=== PATIENT | female | born 1950 | race Caucasian/White ===

== ENCOUNTER 2021-01-04 14:26 | Inpatient (IN) | payer MEDICARE, OTHER ==
[~2021-01-04] VITALS: Ht 154.9 cm; Wt 40.5 kg
[2021-01-04] MEDS ORDERED: MONTELUKAST SOD10 MG PO (17:38)
[2021-01-04] MEDS ORDERED: POTASSIUM CHLOR8 ME1 PO (17:38)
[2021-01-04] MEDS ORDERED: SYMBICORT 16010.2 GM INH (17:38)
[2021-01-04] MEDS ORDERED: PAROXETINE HCL40 MG PO (17:39)
[2021-01-04] MEDS ORDERED: SIMVASTATIN20 MG PO (17:39)
[2021-01-04] MEDS ORDERED: KLONOPIN TAB 00.5 MG PO (17:40)
[2021-01-04] MEDS ORDERED: HYDROCODON-ACE1 EAC4 PO (17:40)
[2021-01-04] MEDS ORDERED: GABAPENTIN100 MG PO (17:40)
[2021-01-04] MEDS ORDERED: LISINOPRIL40 MG PO (17:41)
[2021-01-04] MEDS ORDERED: PROPRANOLOL HCL60 MG PO (17:41)
[2021-01-04] MEDS ORDERED: OMEPRAZOLE20 MG PO (17:42)
[2021-01-04] MEDS ORDERED: DALIRESP 500500 MCG PO (17:42)
[2021-01-04] MEDS ORDERED: BUSPIRONE HCL15 MG PO (17:43)
[2021-01-04] MEDS ORDERED: CYCLOBENZAPRINE10 MG PO (17:44)
[2021-01-04] MEDS ORDERED: FUROSEMIDE20 MG PO (17:44)
[2021-01-04] MEDS ORDERED: OXCARBAZEPINE150 MG PO (17:45)
[2021-01-04] MEDS ORDERED: METOPROLOL SUCC25 MG PO (17:45)
[2021-01-04] MEDS ORDERED: SPIRIVA18 MCG INH (17:46)
[2021-01-04 17:58] LABS: HEMOGLOBIN 13.2 gm/dl (12.3-15.3); RED BLOOD COUNT 4.07 M/UL (4.00-5.10); WHITE BLOOD COUNT 6.8 K/UL (4.5-11.0)
[2021-01-04 19:12] LABS: BUN/CREATININE RATIO 21 (0-10)
--- NOTE | 2021-01-05 09:39 | NUR ---
DAUGHTER MARY NOTIFIED PT WENT DOWN FOR HEART CATH PER DR. JONES AND PT REQUEST
[2021-01-05 09:51] LABS: BUN/CREATININE RATIO 21 (0-10)
[2021-01-05 10:29] LABS: HEMOGLOBIN 12.6 gm/dl (12.3-15.3); RED BLOOD COUNT 3.92 M/UL (4.00-5.10)
[2021-01-05 10:30] LABS: WHITE BLOOD COUNT 10.5 K/UL (4.5-11.0)
[2021-01-06 07:09] LABS: RED BLOOD COUNT 3.69 M/UL (4.00-5.10)
[2021-01-06 07:46] LABS: BUN/CREATININE RATIO 21 (0-10)
[2021-01-07 02:54] LABS: HEMOGLOBIN 11.5 gm/dl (12.3-15.3); RED BLOOD COUNT 3.52 M/UL (4.00-5.10); WHITE BLOOD COUNT 9.1 K/UL (4.5-11.0)
[2021-01-07 03:26] LABS: BUN/CREATININE RATIO 15 (0-10)
[2021-01-07] MEDS ORDERED: ATORVASTATIN CA10 MG PO (16:01)
[2021-01-07] MEDS ORDERED: PROTONIX 40 MG40 M1 PO (16:01)
[2021-01-07] MEDS ORDERED: CLOPIDOGREL75 MG PO (16:01)
[2021-01-07] MEDS ORDERED: ASPIRIN EC81 MG PO (16:01)
[2021-01-07] MEDS ORDERED: MAG-OX 400 TAB400 MG PO (16:01)
[2021-01-07] MEDS ORDERED: AMLODIPINE BESYL5 MG PO (16:01)
== END 2021-01-07 20:00 | disposition home health service (06) | DRG 246 ==
LOC: PROG CARE 14:26
PROVIDERS: Internal Medicine Cardiovascular Disease; ADMIT Internal Medicine
PROC: 027034Z Dilation of Coronary Artery, One Artery with Drug-eluting Intraluminal Device, Percutaneous Approach (ICD-10-PCS; principal; 2021-01-05)
PROC: 4A023N7 Measurement of Cardiac Sampling and Pressure, Left Heart, Percutaneous Approach (ICD-10-PCS; 2021-01-05)
PROC: B2111ZZ Fluoroscopy of Multiple Coronary Arteries using Low Osmolar Contrast (ICD-10-PCS; 2021-01-05)
PROC: B24BZZ4 Ultrasonography of Heart with Aorta, Transesophageal (ICD-10-PCS; 2021-01-05)
DX: I21.4 Non-ST elevation (NSTEMI) myocardial infarction (principal); J96.01 Acute respiratory failure with hypoxia; J96.02 Acute respiratory failure with hypercapnia; Z20.822 Contact with and (suspected) exposure to COVID-19; R64 Cachexia; E46 Unspecified protein-calorie malnutrition; Z68.1 Body mass index [BMI] 19.9 or less, adult; J43.9 Emphysema, unspecified; F17.210 Nicotine dependence, cigarettes, uncomplicated; E78.5 Hyperlipidemia, unspecified; M16.0 Bilateral primary osteoarthritis of hip; G20 Parkinson's disease; F41.9 Anxiety disorder, unspecified; K58.9 Irritable bowel syndrome, unspecified; E05.90 Thyrotoxicosis, unspecified without thyrotoxic crisis or storm; I08.1 Rheumatic disorders of both mitral and tricuspid valves; I10 Essential (primary) hypertension; Z99.81 Dependence on supplemental oxygen; Z82.49 Family history of ischemic heart disease and other diseases of the circulatory system
CPT/HCPCS: ECHO; 36415; 80053; 82550; 82553; 82962; 83735; 84100; 84132; 84484; 85025; 85347; 85610; 85730; 93005; 93306; 94640; 94664; 94760; 99152; 99153; C1725; C1769; C1874; C1887; C1894; C9600; J0360; J1644; J3010; J3246; J7040; Q9965

== ENCOUNTER 2021-11-01 09:28 | Emergency (ER) | payer MEDICARE, OTHER ==
[~2021-11-01 09:28] MED LIST: AMLODIPINE BESYL5 MG PO; ASPIRIN EC81 MG PO; ATORVASTATIN CA10 MG PO; BUSPIRONE HCL15 MG PO; CLOPIDOGREL75 MG PO; CYCLOBENZAPRINE10 MG PO; DALIRESP 500500 MCG PO; FUROSEMIDE20 MG PO; GABAPENTIN100 MG PO; HYDROCODON-ACE1 EAC4 PO; KLONOPIN TAB 00.5 MG PO; LISINOPRIL40 MG PO; MAG-OX 400 TAB400 MG PO; METOPROLOL SUCC25 MG PO; MONTELUKAST SOD10 MG PO; OMEPRAZOLE20 MG PO; OXCARBAZEPINE150 MG PO; PAROXETINE HCL40 MG PO; POTASSIUM CHLOR8 ME1 PO; PROPRANOLOL HCL60 MG PO; PROTONIX 40 MG40 M1 PO; SIMVASTATIN20 MG PO; SPIRIVA18 MCG INH; SYMBICORT 16010.2 GM INH
[2021-11-01 10:10] LABS: HEMOGLOBIN 11.3 gm/dl (12.3-15.3); RED BLOOD COUNT 3.58 M/UL (4.00-5.10); WHITE BLOOD COUNT 9.7 K/UL (4.5-11.0)
[2021-11-01 11:09] LABS: BUN/CREATININE RATIO 14 (0-10)
[2021-11-01] MEDS ORDERED: PREDNISONE20 MG PO (15:19)
[2021-11-01] MEDS ORDERED: IPRAT-ALBUT 0.5-3 ML INH (15:20)
== END 2021-11-01 17:06 | disposition home or self-care (01) ==
LOC: ER1 09:28
PROVIDERS: Family Medicine
DX: J96.11 Chronic respiratory failure with hypoxia (principal); J96.12 Chronic respiratory failure with hypercapnia; F17.200 Nicotine dependence, unspecified, uncomplicated; Z99.81 Dependence on supplemental oxygen; Z20.822 Contact with and (suspected) exposure to COVID-19; J44.9 Chronic obstructive pulmonary disease, unspecified; Z86.59 Personal history of other mental and behavioral disorders; E78.5 Hyperlipidemia, unspecified; I10 Essential (primary) hypertension; Z88.1 Allergy status to other antibiotic agents; Z95.5 Presence of coronary angioplasty implant and graft
CPT/HCPCS: 0240U; 36600; 70450; 71045; 80053; 80307; 81001; 82550; 82553; 82803; 82962; 83605; 83690; 83735; 83880; 84439; 84443; 84484; 85025; 85610; 93005; 94664; 99285; G0480